=== PATIENT | female | born 1945 | race Caucasian/White ===

== ENCOUNTER 2016-10-13 22:45 | Emergency (ER) | payer MEDICARE, BC ==
[~2016-10-13] VITALS: Ht 170.2 cm; Wt 66.5 kg
[2016-10-13] MEDS ORDERED: BUSP5TAB2 PO (23:11)
[2016-10-13] MEDS ORDERED: LISI-167 PO (23:11)
[2016-10-13] MEDS ORDERED: HYDR-3138 PO (23:12)
[2016-10-13] MEDS ORDERED: OMEP-110 PO (23:13)
[2016-10-14] MEDS ORDERED: ACETAMINOPHEN 325 MG TABLET PO ONE
[2016-10-14] MEDS ORDERED: ACETAMINOPHEN 325 MG TABLET ONE (00:42)
[2016-10-14] MEDS ORDERED: BACITRACIN ZINC OINT 500U/GM, 0.9 GM ONE (01:36)
[2016-10-14 01:47] VITALS: BP 111/74
== END 2016-10-14 02:00 | disposition home or self-care (01) ==
LOC: ED 23:46
DX: S50.12XA Contusion of left forearm, initial encounter (principal); S40.022A Contusion of left upper arm, initial encounter; S80.02XA Contusion of left knee, initial encounter; M17.12 Unilateral primary osteoarthritis, left knee; Z87.891 Personal history of nicotine dependence; W01.0XXA Fall on same level from slipping, tripping and stumbling without subsequent striking against object, initial encounter; Y93.89 Activity, other specified; Y92.89 Other specified places as the place of occurrence of the external cause; Y99.8 Other external cause status
CPT/HCPCS: 70450; 71010; 72125; 72190; 99284

== ENCOUNTER 2017-02-13 15:38 | Inpatient (IN) | payer MEDICARE, BC ==
[~2017-02-13] VITALS: Ht 170.2 cm; Wt 73.3 kg
[~2017-02-13 15:38] MED LIST: BUSP5TAB2 PO; HYDR-3237 PO; LISI-167 PO; OMEP-110 PO
[2017-02-13] MEDS ORDERED: SODIUM CHLORIDE FLUSH 10ML SYR IVF ONE (16:00)
[2017-02-13] MEDS ORDERED: SODIUM CHLORIDE 0.9% 1,000ML IVBOLUS ONE ×2 (16:00→18:30)
[2017-02-13 16:29] LABS: HEMATOCRIT 50.2 % (34.6-47.8); HEMOGLOBIN 16.8 g/dL (11.7-16.4)
[2017-02-13 16:39] LABS: ASPARTATE AMINO TRANSFERASE 31 U/L (15-37); BLOOD UREA NITROGEN 19 mg/dL (7-18)
[2017-02-13] MEDS ORDERED: TIZA2CAP PO (16:44)
[2017-02-13] MEDS ORDERED: SODIUM CHLORIDE 0.9%, 500ML IVBOLUS ONE (17:00)
[2017-02-13 17:01] LABS: DIFF TOTAL CELLS COUNTED 100 CELL DIFF
[2017-02-13 17:02] LABS: VERIFY COUNTS? YES
[2017-02-13] MEDS ORDERED: CEFTRIAXONE 2 GM in DEXTROSE 5% 50 ML IV ONE (18:00)
[2017-02-13] MEDS ORDERED: CEFTRIAXONE PMX 2GM/50ML 50 ML ONE (18:57)
[2017-02-13] MEDS ORDERED: ONDANSETRON 2MG/ML, 2ML ONE (19:56)
[2017-02-13] MEDS ORDERED: morphine SULFATE 10 MG/ML, 1ML ONE (19:56)
[2017-02-13] MEDS ORDERED: MORPHINE SULFATE 4 MG/ML, 1ML IVPush PRN (20:00)
[2017-02-13] MEDS ORDERED: ONDANSETRON 2MG/ML, 2ML IVPush ONE (20:00)
[2017-02-13] MEDS ORDERED: OMNIPAQUE 350 MG/ML, 100ML BOTTLE ONE (20:01)
[2017-02-13] MEDS ORDERED: SODIUM CHLORIDE 0.9% 1,000 ML IV SCH ×2 (21:30→21:35)
[2017-02-13] MEDS ORDERED: VANCOMYCIN PER PHARMACY MC ONE (21:30)
[2017-02-13] MEDS ORDERED: PHARMACOKINETIC CONSULTATION MC ONE ×2 (21:30→23:00)
[2017-02-13] MEDS ORDERED: ENOXAPARIN 40 MG/0.4 ML SQ SCH (22:00)
[2017-02-13] MEDS ORDERED: VANCOMYCIN PER PHARMACY MC PRN (22:00)
[2017-02-13] MEDS ORDERED: PHARMACY MAY ADJ FOR RENAL FX MC PRN (22:00)
[2017-02-13] MEDS: TIZANIDINE 2MG TABLET PO SCH (22:00)
[2017-02-13] MEDS ORDERED: DOCUSATE 100 MG CAPSULE PO PRN (22:00)
[2017-02-13] MEDS ORDERED: VANCOMYCIN 1,400 MG in SODIUM CHLORIDE 0.9% 250 ML IV ONE (22:00)
[2017-02-13] MEDS ORDERED: PHENAZOPYRIDINE 200 MG TABLET PO ONE (22:30)
[2017-02-13 22:52] VITALS: BP 137/80
[2017-02-13] MEDS ORDERED: PHARMACOKINETIC MONITORING MC PRN (23:00)
[2017-02-13] MEDS: BUSPIRONE 5 MG TABLET PO SCH (23:30)
[2017-02-14] MEDS ORDERED: MORPHINE SULFATE 4 MG/ML, 1ML IVPush ONE ×2 (00:30→05:30)
[2017-02-14] MEDS ORDERED: morphine SULFATE 10 MG/ML, 1ML ONE ×4 (00:36→23:28)
[2017-02-14 01:10] VITALS: BP 123/84
[2017-02-14] MEDS: ACETAMINOPHEN 325 MG TABLET PO PRN ×2 (04:13→15:39)
[2017-02-14 05:14] LABS: HEMOGLOBIN 16.2 g/dL (11.7-16.4); WHITE BLOOD COUNT 12.6 x10^3/uL (3.4-10)
[2017-02-14 05:35] LABS: BLOOD UREA NITROGEN 38 mg/dL (7-18)
[2017-02-14] MEDS ORDERED: CEFTRIAXONE PMX 1GM/50ML 50 ML IV SCH (06:00)
[2017-02-14] MEDS: INSULIN ASPART 100 UNITS/ML, PEN SQ-INSULIN SCH ×4 (07:00→21:00)
[2017-02-14 08:11] VITALS: BP 71/53
[2017-02-14] MEDS ORDERED: SODIUM CHLORIDE 0.9%, 500ML IVBOLUS ONE (08:30)
[2017-02-14] MEDS: LISINOPRIL 10 MG TABLET PO SCH (08:49)
[2017-02-14] MEDS: BUSPIRONE 5 MG TABLET PO SCH ×2 (09:00→21:00)
[2017-02-14] MEDS: METRONIDAZOLE PMX 500MG/100ML 100 ML IVPB SCH ×2 (09:00→17:15)
[2017-02-14] MEDS: TIZANIDINE 2MG TABLET PO SCH ×2 (09:00→21:00)
[2017-02-14] MEDS: OMEPRAZOLE 20 MG CAPSULE.DR PO SCH (09:00)
[2017-02-14 09:01] VITALS: BP 81/42
[2017-02-14] MEDS: AMPICILLIN/SULBACTAM 3 GM in SODIUM CHLORIDE 0.9% 100 ML IV SCH ×2 (11:48→21:42)
[2017-02-14 11:54] VITALS: BP 87/58
[2017-02-14] MEDS ORDERED: FENTANYL 25 MCG PATCH ONE (12:24)
[2017-02-14] MEDS ORDERED: FENTANYL 25 MCG PATCH TD SCH (12:30)
[2017-02-14] MEDS ORDERED: FENTANYL REMOVE PATCH NOTE XX SCH (12:30)
[2017-02-14] MEDS ORDERED: SODIUM CHLORIDE 0.9% 1,000ML IVBOLUS ONE (13:00)
[2017-02-14] MEDS: NOREPINEPHRINE 4 MG in SODIUM CHLORIDE 0.9% 246 ML IV PRN ×2 (13:42→17:15)
[2017-02-14 14:00] LABS: HEMATOCRIT 35.5 % (34.6-47.8); HEMOGLOBIN 11.6 g/dL (11.7-16.4); WHITE BLOOD COUNT 7.5 x10^3/uL (3.4-10)
[2017-02-14 14:07] LABS: DIFF TOTAL CELLS COUNTED 100 CELL DIFF
[2017-02-14 15:13] LABS: VERIFY COUNTS? YES
[2017-02-14 15:16] LABS: ANISOCYTOSIS 1+; ROULEAUX 1+
[2017-02-14] MEDS ORDERED: PINK LADY ENEMA 1,000 ML PR ONE (16:00)
[2017-02-14] MEDS: FENTANYL PF 100 MCG/2ML IVPush PRN ×5 (16:10→22:18)
[2017-02-14] MEDS ORDERED: VANCOMYCIN 1,200 MG in SODIUM CHLORIDE 0.9% 250 ML IV ONE (17:00)
[2017-02-14] MEDS: NOREPINEPHRINE 8 MG in SODIUM CHLORIDE 0.9% 242 ML IV PRN (20:08)
[2017-02-14] MEDS ORDERED: DEXTROSE 50%, 50ML SYRINGE ONE (21:22)
[2017-02-14] MEDS: SODIUM CHLORIDE FLUSH 10ML SYR IVF SCH (21:30)
[2017-02-14] MEDS ORDERED: VASOPRESSIN 100 UNIT in SODIUM CHLORIDE 0.9% 495 ML IV PRN ×2 (21:30→22:30)
[2017-02-14] MEDS ORDERED: DEXTROSE 50%, 50ML SYRINGE IVPush PRN (21:30)
[2017-02-14] MEDS ORDERED: GLUCAGON 1 MG IM PRN (21:30)
[2017-02-14] MEDS: D5%-0.9% NACL 1,000 ML IV SCH (21:50)
[2017-02-14] MEDS ORDERED: ENOXAPARIN 30 MG/0.3 ML SQ SCH (22:00)
[2017-02-14] MEDS: MORPHINE SULFATE 4 MG/ML, 1ML IVPush PRN (23:33)
[2017-02-15] MEDS: FENTANYL PF 100 MCG/2ML IVPush PRN ×3 (00:04→04:51)
[2017-02-15] MEDS: METRONIDAZOLE PMX 500MG/100ML 100 ML IVPB SCH ×2 (01:10→08:28)
[2017-02-15] MEDS ORDERED: morphine SULFATE 10 MG/ML, 1ML ONE (02:01)
[2017-02-15] MEDS: MORPHINE SULFATE 4 MG/ML, 1ML IVPush PRN (02:05)
[2017-02-15] MEDS ORDERED: HYDROmorphone 1 MG/ML, 1ML IV PRN (02:30)
[2017-02-15] MEDS ORDERED: LORazepam 2 MG/ML, 1ML IVPush PRN (02:30)
[2017-02-15] MEDS: NOREPINEPHRINE 8 MG in SODIUM CHLORIDE 0.9% 242 ML IV PRN (02:50)
[2017-02-15 04:13] LABS: HEMATOCRIT 44.4 % (34.6-47.8); HEMOGLOBIN 14.6 g/dL (11.7-16.4); WHITE BLOOD COUNT 10.7 x10^3/uL (3.4-10)
[2017-02-15 04:16] LABS: DIFF TOTAL CELLS COUNTED 100 CELL DIFF
[2017-02-15 04:18] LABS: ASPARTATE AMINO TRANSFERASE 195 U/L (15-37); BLOOD UREA NITROGEN 65 mg/dL (7-18)
[2017-02-15 04:42] LABS: ANISOCYTOSIS 1+; ECHINOCYTES 1+
[2017-02-15 04:44] LABS: VERIFY COUNTS? YES
[2017-02-15 05:21] VITALS: BP 115/64
[2017-02-15] MEDS: INSULIN ASPART 100 UNITS/ML, PEN SQ-INSULIN SCH (05:44)
[2017-02-15] MEDS: SODIUM CHLORIDE FLUSH 10ML SYR IVF SCH (08:08)
[2017-02-15] MEDS: LISINOPRIL 10 MG TABLET PO SCH (08:09)
[2017-02-15] MEDS: TIZANIDINE 2MG TABLET PO SCH (08:19)
[2017-02-15] MEDS: OMEPRAZOLE 20 MG CAPSULE.DR PO SCH (08:19)
[2017-02-15] MEDS: BUSPIRONE 5 MG TABLET PO SCH (08:19)
[2017-02-15] MEDS: D5%-0.9% NACL 1,000 ML IV SCH (08:28)
[2017-02-15] MEDS ORDERED: LORazepam 2 MG/ML, 1ML IV PRN (10:30)
[2017-02-15] MEDS ORDERED: LORazepam 10 MG in SODIUM CHLORIDE 0.9% 245 ML IV PRN (10:30)
[2017-02-15] MEDS ORDERED: morphine SULFATE 125 MG in SODIUM CHLORIDE 0.9% 237.5 ML IV PRN (10:30)
== END 2017-02-15 12:58 | disposition expired | DRG 871 ==
LOC: ED 19:53 → EDIP 21:35 → 3NE 22:36 → CCU 02-14 12:59 → 3NW 02-15 10:35
PROVIDERS: ADMIT Hospitalist; ATTEND Hospitalist
PROC: 0T9B70Z Drainage of Bladder with Drainage Device, Via Natural or Artificial Opening (ICD-10-PCS; 2017-02-13)
PROC: 02HV33Z Insertion of Infusion Device into Superior Vena Cava, Percutaneous Approach (ICD-10-PCS; principal; 2017-02-14)
PROC: B548ZZA Ultrasonography of Superior Vena Cava, Guidance (ICD-10-PCS; 2017-02-14)
DX: A41.9 Sepsis, unspecified organism (principal); N17.0 Acute kidney failure with tubular necrosis; J96.90 Respiratory failure, unspecified, unspecified whether with hypoxia or hypercapnia; R65.21 Severe sepsis with septic shock; N39.0 Urinary tract infection, site not specified; J98.11 Atelectasis; K59.39 Other megacolon; K43.9 Ventral hernia without obstruction or gangrene; F02.80 Dementia in other diseases classified elsewhere, unspecified severity, without behavioral disturbance, psychotic disturbance, mood disturbance, and anxiety; F10.21 Alcohol dependence, in remission; I10 Essential (primary) hypertension; K44.9 Diaphragmatic hernia without obstruction or gangrene; K59.00 Constipation, unspecified; Z51.5 Encounter for palliative care; Z80.51 Family history of malignant neoplasm of kidney; Z83.3 Family history of diabetes mellitus; Z87.820 Personal history of traumatic brain injury; Z87.891 Personal history of nicotine dependence; Z90.49 Acquired absence of other specified parts of digestive tract; Z88.2 Allergy status to sulfonamides; Z91.048 Other nonmedicinal substance allergy status; Z66 Do not resuscitate
CPT/HCPCS: 36415; 36569; 51702; 71010; 74176; 74177; 76937; 77001; 80048; 80053; 80202; 81001; 82962; 83036; 83605; 83735; 84100; 84145; 85025; 85610; 87040; 87081; 87086; 93005; 96365; 96366; 96375; J0295; J0696; J1650; J2405; J3010; J3370; J7042; Q9967; C1751; J2060; J2270; J7030; J7040; J7050